=== PATIENT | female | born 1950 | race Caucasian/White ===

== ENCOUNTER → 2019-12-29 08:24 | Outpatient (REF) | payer OTHER, SELFPAY | LOC: ANHLAB 08:24 | PROVIDERS: Visit Provider Nurse Practitioner | DX: C44.722 Squamous cell carcinoma of skin of right lower limb, including hip (principal) | CPT/HCPCS: 88305 ==

== ENCOUNTER → 2020-02-01 10:53 | Outpatient (REF) | payer OTHER, SELFPAY | LOC: ANHLAB 10:53 | PROVIDERS: Visit Provider Nurse Practitioner | DX: C44.722 Squamous cell carcinoma of skin of right lower limb, including hip (principal) | CPT/HCPCS: 88305; 88331 ==

== ENCOUNTER 2021-09-04 14:29 | Outpatient (CLI) | payer OTHER, SELFPAY ==
--- NOTE | 2021-09-04 | ECHO_ITS ---
Patient Info Name: Becky Morales Age: 70 years : 1950 Gender: Female Ht: 63 in Wt: 118 lbs BSA: 1.54 m2 HR: 118 bpm BP: 123 / 84 mmHg Technical Quality: Poor Exam Date: 09/04/2021 2:58 PM Exam Location: [facility] Patient Status: Outpatient Admit Date: 09/04/2021 Staff Ordering Physician: Harpal Rand MD Help Desk Assistant: Alyse Sanchez RDCS Attending Provider: Harpal Rand MD Referring Physician: Keyona DURAN; Exam Type: CA echo doppler color flow Study Info Indications - ADENOID CYSTIC CARCINOMA C80.1 - Malignant (primary) neoplasm, unspecified Complete two-dimensional, color flow and Doppler transthoracic echocardiogram is performed. Reason for Poor Study: poor echocardiographic windows Summary 1. Complete two-dimensional, color flow and Doppler transthoracic echocardiogram is performed. 2. Technically suboptimal study due to poor sonographic images. 3. Left ventricular chamber dimension is normal. 4. Echogenic mass measuring 1.1 x 0.9 cm in LV apex is not well seen and could be artifact. Consider definity contrast injection to better delineate mass if any. 5. Left ventricular systolic function is hyperdynamic, estimated at >70%. 6. The left ventricular diastolic function is grade I diastolic dysfunction. 7. E/e' 7 is not elevated. 8. Severe pulmonary hypertension, estimated pulmonary arterial systolic pressure is 77 mmHg. 9. Pleural effusion with large fibrinous material suggesting chronicity. Left Ventricle E/e' 7 is not elevated. Technically suboptimal study due to poor sonographic images. Echogenic mass measuring 1.1 x 0.9 cm in LV apex is not well seen and could be artifact. Consider definity contrast injection to better delineate mass if any. Left ventricular chamber dimension is normal. Left ventricular systolic function is hyperdynamic, estimated at >70%. The left ventricular diastolic function is grade I diastolic dysfunction. Right Ventricle Right ventricular chamber dimension is not well visualized. Left Atria Left atrial chamber dimension is normal. Right Atria Right atrial chamber dimension is not well visualized. Aortic Valve The aortic valve is probable trileaflet. There is no aortic valve stenosis. There is no aortic valve regurgitation. Pulmonic Valve There is no pulmonic regurgitation. Mitral Valve There is no mitral valve stenosis. There is no mitral valve regurgitation. Tricuspid Valve There is no tricuspid valve regurgitation. Severe pulmonary hypertension, estimated pulmonary arterial systolic pressure is 77 mmHg. Pericardium/Pleural Pleural effusion with large fibrinous material suggesting chronicity. There is no pericardial effusion. Inferior Vena Cava Normal inferior vena cava with >50% collapse upon inspiration consistent with normal right atrial pressure, 5 mmHg. Aorta The aortic root size at the sinus of Valsalva is not well visualized. Left Ventricular Outflow Tract Name Value Normal LVOT 2D LVOT Diameter 1.8 cm LVOT Doppler LVOT Peak Gradient 6 mmHg LVOT Mean Gradient
== END 2021-09-04 14:30 | disposition home or self-care (01) ==
LOC: ANHCARD 14:33
PROVIDERS: PCP Internal Medicine; Visit Provider Internal Medicine Hematology & Oncology
DX: C80.1 Malignant (primary) neoplasm, unspecified (principal); J90 Pleural effusion, not elsewhere classified; I27.20 Pulmonary hypertension, unspecified
CPT/HCPCS: 93306

== ENCOUNTER 2021-09-05 15:47 | Inpatient (IN) | payer OTHER, SELFPAY ==
[2021-09-05] VITALS (31 sets, daily range): BP systolic 96–137; BP diastolic 64–106; PULSE 101–116; RESP 17–34; TEMP 36.3–36.9; O2SAT 48–100; BMI 25.0
--- NOTE | ~2021-09-05 | CT_ITS ---
EXAMINATION: CTA chest PE protocol DATE: 09/05/2021 23:31 INDICATION: Respiratory failure. TECHNIQUE: Computed tomography angiography (CTA) of the chest was performed with 100 mL Omnipaque-350 intravenous contrast timed to evaluate the pulmonary arteries. Coronal maximum intensity projection 3D-reconstructions were created by the technologist. Automated exposure control and iterative reconst ruction technique were employed. The dose-length product was 225.36 mGy-cm. COMPARISON: None. FINDINGS: There are numerous nodules and masses in the lungs. The largest mass in the right lung julius ures 3.9 x 3.2 cm. There is a large left pleural effusion with leftward shift of the mediastinum and inferior displacement of the diaphragm. There is bulky nodular pleural thickening in the left hemitho rax. The central pulmonary arteries are enlarged, consistent with pulmonary arterial hypertension. Th ere is right ventricular and right atrial enlargement of the heart. No pericardial effusion. There ar e pulmonary emboli in right middle lobe, right lower lobe, and right upper lobe. There is mild thorac ic spondylosis. IMPRESSION: 1. Acute pulmonary emboli in right lung. 2. Numerous nodules and masses in the lungs, consistent with metastatic disease. 3. Large left pleural effusion with bulky nodular pleural thickening, consistent with metastatic dise ase. 4. Right ventricular and right atrial enlargement of the heart. Reviewed, dictated and finalized at location B. IMPRESSION: 1. Acute pulmonary emboli in right lung. 2. Numerous nodules and masses in the lungs, consistent with metastatic disease . 3. Large left pleural effusion with bulky nodular pleural thickening, consisten t with metastatic disease. 4. Right ventricular and right atrial enlargement of the heart.
--- NOTE | ~2021-09-05 | XR_ITS ---
EXAMINATION: [id number] Exam Date/Time: 09/05/2021 17:37 CDT CLINICAL HISTORY: left pleural effusion Comparison: Same date at 4:02 PM. RESULT: Lines, tubes, and devices: None. Lungs and pleura: Interval decreased size of the left pleural effusion. No pneumothorax. Cardiomediastinal silhouette: Stable cardiomediastinal silhouette. Other: No acute osseous or upper abdominal finding. IMPRESSION: Interval decreased size of left pleural effusion, no other interval change. Reviewed, dictated and finalized at location K.
--- NOTE | ~2021-09-05 | US_ITS ---
EXAMINATION: US venous doppler [facility] DATE: 09/06/2021 11:53 INDICATION: Lower limb swelling. TECHNIQUE: Grayscale ultrasound images without and with compression and Doppler ultrasound images of the bilateral lower extremity veins were obtained. COMPARISON: None. FINDINGS: The visualized portions of right common femoral vein, profunda (deep) femoral vein, femoral vein, pop liteal vein, posterior tibial veins, and greater saphenous vein outflow are patent. There is thrombus in the right peroneal veins. The visualized portions of left common femoral vein, profunda femoral vein, femoral vein, popliteal v ein, peroneal veins, and greater saphenous vein outflow are patent. There is thrombus in the left pos terior tibial veins. IMPRESSION: 1. Acute deep vein thrombosis involving the right peroneal veins and left posterior tibial veins. Reviewed, dictated and finalized at location B. IMPRESSION: 1. Acute deep vein thrombosis involving the right peroneal veins and left post erior tibial veins.
--- NOTE | ~2021-09-05 | US_ITS ---
EXAMINATION: US thoracentesis DATE: 09/05/2021 17:47 INDICATION: pleural effusion TECHNIQUE: The procedure and its risks, benefits, and alternatives were discussed with the patient. P otential risks discussed included bleeding, infection, and pneumothorax. The patient understood the r isks and agreed to proceed. The skin was prepped and draped in sterile fashion. 1% lidocaine was used for local anesthesia. Under ultrasound guidance, a 5 Fr catheter with trochar was advanced into the left pleural effusion. Fluid was aspirated. The catheter was removed, and a dressing was applied. The re were no immediate complications. FINDINGS: Ultrasound images demonstrate a left pleural effusion and the catheter within the fluid. IMPRESSION: 1. Successful ultrasound-guided thoracentesis yielding 450 mL of opaque, red fluid. Reviewed, dictated and finalized at location A. IMPRESSION: 1. Successful ultrasound-guided thoracentesis yielding 450 mL of opaque, red f luid.
--- NOTE | ~2021-09-05 | XR_ITS ---
EXAMINATION: XR chest 1V portable DATE: 09/05/2021 16:07 INDICATION: Shortness of breath. TECHNIQUE: A single frontal view of the chest was obtained. COMPARISON: None. FINDINGS: There is a large left pleural effusion. There are multiple nodules and masses in the lungs. No pneumothorax. The heart size is obscured. There are changes of anterior fusion procedure in cervi elmo spine. IMPRESSION: 1. Nodules and masses in the lungs, likely metastatic disease. 2. Large left pleural effusion. Reviewed, dictated and finalized at location B.
--- NOTE | 2021-09-05 16:02 | ECG_ITS ---
Measurements Intervals [place] Rate: 114 P: 45 VA: 142 QRS: 39 QRSD: 79 T: -52 QT: 351 QTc: 484 Interpretive Statements SINUS TACHYCARDIA T WAVE ABNORMALITY IN ANT/INF LEADS- CONSIDER ISCHEMIA BASELINE ARTIFACT- I, II, III, AVR, AVL, AVF, V1, V4-V6 ABNORMAL ECG Electronically Signed On 09-05-2021 16:22:02 CDT by Varghese Farias D.O.
[2021-09-05 16:15] LABS: Basophils Absolute Auto 0.1 K/mm3 (0.0-0.1); Basophils Percent Auto 0.3 % (0.2-1.2); Hematocrit 44.6 % (37.0-47.0); Hemoglobin 13.1 g/dL (12.0-15.0); Immature Granulocyte Absolute 0.23 K/mm3 (0.00-0.031); Immature Granulocyte Percent A 1.3 % (0-0.5); Lymphocytes Absolute Auto 1.42 K/mm3 (0.9-3.2); Mean Corpuscular HGB Conc 29.4 g/dl (32-36); Mean Corpuscular Hemoglobin 30.8 pg (26-34); Mean Corpuscular Volume 104.7 fl (80-100); Mean Platelet Volume 9.4 fl (7.4-10.4); Monocytes Absolute Auto 1.4 K/mm3 (0.1-0.6); Neutrophils Absolute Auto 14.7 K/mm3 (1.3-6.7); Neutrophils Percent Auto 82.4 % (45.5-73.1); Nucleated Red Blood Cells Absolute Auto 0.4 K/mm3 (0.0-0.012); Nucleated Red Blood Cells Perc 2.1 % (0.0-0.2); Platelet Count Result 353 k/mm3 (150-375); Red Blood Count 4.26 M/mm3 (4.2-5.4); White Blood Count 17.9 K/mm3 (4.5-10.0)
[2021-09-05 16:23] LABS: Albumin Level 3.9 g/dL (3.5-5.1); Alkaline Phosphatase 164 U/L (38-126); Anion Gap 19 mmol/L (8-16); Aspartate Amino Transferase 75 U/L (14-36); Bilirubin,Total 0.6 mg/dL (0.2-1.3); Blood Urea Nitrogen 36 mg/dL (7-17); Calcium 9.7 mg/dL (8.4-10.2); Carbon Dioxide 21 mmol/L (22-30); Chloride 100 mmol/L (98-107); Estimated CRCL calculation 42 ml/min; Estimated Glomerular Filt Rate > 60; Glucose 188 mg/dL (65-110); Potassium 4.8 mmol/L (3.4-5.0); Sodium 140 mmol/L (137-145)
[2021-09-05 16:24] LABS: Alanine Aminotransferase 31 U/L (6-35)
--- NOTE | 2021-09-05 16:24 | ED.SOB ---
HPI - SOB/Dyspnea General Chief Complaint: Shortness of Breath/Dyspnea Stated Complaint: SOB, n/v Time Seen by Provider: 09/05/21 16:01 History of Present Illness HPI Narrative: Patient is a 70-year-old female who presents ER with shortness of breath. Worsening over the last 2 days but suddenly worsening prior to arrival here. Patient diaphoretic and hypoxic in triage at 48%.-Improving on nonrebreather mask. 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 She has not yet started radiation or chemotherapy. She sees Dr. Rand. Denies chest pain. No lower extremity swelling. Denies fevers or chills or sweats. No new cough. Related Data Home Medications Medication Instructions Recorded Confirmed hydrocodone 10 mg-acetaminophen 1 tablet PO PRN tablet 12/29/19 325 mg tablet diazepam 09/05/21 09/05/21 Allergies Allergy/AdvReac Type Severity Reaction Status Date / Time No Known Allergies Allergy Verified 09/05/21 16:11 Review of Systems Review of Systems: All systems reviewed & are unremarkable except as noted in HPI and below Constitutional: Constitutional: Denies chills, Reports fatigue, Denies fever(s) and Reports weakness ENT: Denies nasal congestion and Denies sore throat Cardiovascular: Cardiovascular: Denies chest pain, Denies rapid heart rate and Denies radiating jaw, neck or arm pain Respiratory: Respiratory: Denies cough, Reports dyspnea and Denies wheezing Gastrointestinal: Gastrointestinal: Denies abdominal pain, Denies nausea and Denies vomiting [facility] Past Medical History Medical History (Updated 09/05/21 @ 18:44 by Hilario Singh MD) 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 Head: Normocephalic, atraumatic. EYES: PERRL and EOMI. ENT: Dry mucous membranes. CHEST: Mixed lung sounds on the left side. Severe respiratory distress with accessory muscle usage. Clear lung sounds in the right side. HEART: Tachycardic and regular. Normal peripheral pulses. ABDOMEN: Soft, nontender, nondistended. EXTREMITIES: Normal range of motion. No edema. SKIN: Cool, moist, pale, no rash. NEURO: Alert and oriented x3. PSYCH: Normal mood and affect. Course Course Emergency Course: Patient family educate about the severity of the disease including the metastases. Patient has had 450 mL drained from her lung. There is concern for drawn long related to the tumors where she is not getting full expansion because there is no atelectasis. I have explained this to the family as well. Discussed that she has grim prognosis especially given how she is deteriorating without chemotherapy. Patient still full code at this time. Discussed elevated troponin. No chest pain at this time. We will continue to trend. May be related to strain. Additionally with elevated white blood cell count patient will be started on IV antibiotics. Possible pneumonia. Vital Signs Vital signs: Vital Signs Temperature 97.4 F L 09/05/21 15:57 Pulse Rate 115 H 09/05/21 15:57 Respiratory Rate 34 H 09/05/21 15:57 Blood Pressure 109/64 09/05/21 15:57 Pulse Oximetry 48 L 09/05/21 15:57 Temperature 97.4 F L 09/05/21 15:57 Pulse Rate 110 H 09/05/21 17:30 Respiratory Rate 27 H 09/05/21 17:30 Blood Pressure 137/86 09/05/21 17:30 Pulse Oximetry 97 09/05/21 17:30 MDM - SOB/Dyspnea Lab Data Result diagrams: 09/05/21 15:58 09/05/21 15:58 Labs:
[2021-09-05 16:26] LABS: INR 1.6; Prothrombin Time 18.7 Seconds (11.1-14.7)
[2021-09-05 16:27] LABS: NT Pro B Type Natriuretic Pept 15000 pg/mL (5-100)
[2021-09-05 16:39] LABS: Troponin I 0.117 ng/mL (0.000-0.034)
--- NOTE | 2021-09-05 17:26 | PCRCNOTE ---
ABG sample not obtained due to multiple failed attempts. Dr. Singh was notified.
--- NOTE | 2021-09-05 17:31 | PC.NURSE ---
Thoracentesis performed. 450mL removed. BHAVYA Singh at bedside updating pt and family.
[2021-09-05] MEDS: MORPHINE SULFATE (*CRX) 4 MG/ML INJ IV PUSH ×2 (18:01→22:37)
[2021-09-05 19:52] LABS: Troponin I 0.139 ng/mL (0.000-0.034)
--- NOTE | 2021-09-05 20:01 | ADMGEN ---
This patient, Becky Morales, was admitted to IMU Room 202-01. Patient/family oriented to hospital policies and general routines including ID bracelet, bed and alarms, visiting hours, pain management, procedures, bathroom and other care routines, personal items, smoking policy, room service/diet, and visiting hours. Information on how to activate the Rapid Response Team has been discussed. Patient/Family are encouraged to report perceived risks to care and to ask questions if they do not understand what they are told or what they should do.
--- NOTE | 2021-09-05 21:37 | PM.IMHP ---
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 The patient was brought in from home via private vehicle. She was in marked respiratory distress on arrival to the ER with oxygen saturations of 40% on room air. She is placed on 15 L non-rebreather with improvement oxygen saturations to 90%. The patient had been having increasing shortness of breath for the last 2 days but suddenly worsen prior to coming to the ER. She was found to be diaphoretic on arrival. 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 She reported that her medical saga began back in June when she fell and had a pathologic compression fracture. She had noted an area of swelling right jaw that had been present for approximately 3 months prior to that. She thought that the swelling in her jaw was due to a tooth infection that had been treated previously. However, she had continued to be fatigued in have decreased appetite. She began having issues with shortness of breath and was found to have pleural effusions. She had a thoracentesis approximately 3 weeks ago and imaging performed which demonstrated metastatic disease. Initially they did not know where the origin of the cancer was at and chills she pointed out the swelling under her jaw. She had resection of the salivary gland which demonstrated a cancer type. She went to see Dr. Scott adams as outpatient and had outpatient echocardiogram 09/04/2021. The echocardiogram demonstrated technically difficult study with poor images. She had an echogenic mass in the left ventricular apex not well seen, left ventricular systolic function greater than 70, grade 1 diastolic dysfunction, and severe pulmonary hypertension with RVSP of 71. She had a pleural effusion with large fibrinous material suggesting chronic in nature. She denied having any fevers or chills. She has not been having any nausea or vomiting. She has been having poor appetite. A she denies any chest pain. She has not noticed any extremity edema or calf pain. She reports that she was healthy prior to this diagnosis. The patient does report orthopnea and paroxysmal nocturnal dyspnea. In the ER the patient was placed on BiPAP. She was taken by IR for ultrasound-guided thoracentesis. They obtained 450 mL of opaque red fluid. Patient reports chronic dry mouth and is irritated was heavily BiPAP in place. Patient was weaned to 8 L nasal cannula. But given her elevated RVSP and evidence of severe pulmonary hypertension on his suspicious for pulmonary embolism and sent the patient for CTA of the chest (after much convincing the patient agreed.) When the patient arrived back from CT she was satting 77% on 8 L nasal cannula. She did not want to return to BiPAP but nursing staff was able to convince her that it was for her best interest. The patient reports pain from her recent vertebral compression fracture. Review of Systems Review of Systems: 12 systems were reviewed with pertinent positives and negatives per HPI. Except as documented in the HPI, all other systems were reviewed and are negative. [facility] Past Medical History Medical History (Updated 09/06/21 @ 05:48 by Janeen العراقي DO) Adenoid cystic carcinoma History of actinic keratosis History of basal cell carcinoma (BCC) of skin Squamous cell carcinoma of right lower leg Vertebral compression fracture Surgical History Surgical History History of back surgery 1st surgery - 2001 Family History Family History (Updated 09/05/21 @ 21:41 by Janeen العراقي DO) Mother , 88 years old Breast cancer Sibling Breast cancer Sister COPD (chronic obstructive pulmonary disease)
[2021-09-05 22:25] LABS: Troponin I 0.118 ng/mL (0.000-0.034)
[2021-09-06] VITALS (23 sets, daily range): BP systolic 98–144; BP diastolic 61–77; PULSE 88–116; RESP 16–32; TEMP 36.5–37.7; O2SAT 92–100; BMI 25.0
--- NOTE | 2021-09-06 | ECHO_ITS ---
Patient Info Name: Becky Morales Age: 70 years : 1950 Gender: Female Ht: 63 in Wt: 141 lbs BSA: 1.70 m2 HR: 113 bpm BP: 132 / 65 mmHg Technical Quality: Good Exam Date: 09/06/2021 11:33 AM Exam Location: [facility] Pulmonary Exam Room: [facility] Patient Status: Inpatient Admit Date: 09/06/2021 Staff Ordering Physician: Candido Castano MD Assistant Track And Field Coach: Trista Fuller RDCS Attending Provider: Ray Mason M.A., MD Exam Type: CA echo limited w contrast Study Info Indications - eval for cardiac mass Limited two-dimensional transthoracic echocardiogram is performed with contrast. Contrast/Agitated Saline Contrast/Ag. Saline: Definity Amount: --- ml Administered By: Trista Fuller [facility] Existing IV Access: Yes IV Access Condition: patent with no signs of infiltration Summary 1. Limited echocardiogram to assess for apical mass with definity contrast. 2. Definity contrast administered improved wall motion interpretation. 3. No mass is seen in LV apex which suggests mass seen on complete thoracic echocardiogram was an artifact. 4. Left ventricular chamber dimension is normal. 5. Left ventricular systolic function is hyperdynamic, estimated at >70%. 6. The left ventricular diastolic function is indeterminate. Left Ventricle Definity contrast administered improved wall motion interpretation. Limited echocardiogram to assess for apical mass with definity contrast. No mass is seen in LV apex which suggests mass seen on complete thoracic echocardiogram was an artifact. Left ventricular chamber dimension is normal. Left ventricular systolic function is hyperdynamic, estimated at >70%. The left ventricular diastolic function is indeterminate. Report Signatures
[2021-09-06] MEDS: HEPARIN SOD/D5W 100 UNITS/ML 25,000 UNITS/250 ML BAG 10 UNITS IV CONT (01:27)
[2021-09-06] MEDS: HEPARIN SODIUM 5,000 UNITS/ML VIAL 5000 UNITS IV PUSH (01:28)
[2021-09-06] MEDS: MORPHINE SULFATE (*CRX) 4 MG/ML INJ IV PUSH ×4 (04:44→21:47)
[2021-09-06 07:43] LABS: Hematocrit 37.6 % (37.0-47.0); Hemoglobin 11.6 g/dL (12.0-15.0); Mean Corpuscular HGB Conc 30.9 g/dl (32-36); Mean Corpuscular Hemoglobin 30.8 pg (26-34); Mean Corpuscular Volume 99.7 fl (80-100); Mean Platelet Volume 9.5 fl (7.4-10.4); Platelet Count Result 236 k/mm3 (150-375); Red Blood Count 3.77 M/mm3 (4.2-5.4); White Blood Count 13.9 K/mm3 (4.5-10.0)
[2021-09-06 07:54] LABS: Anion Gap 8 mmol/L (8-16); Blood Urea Nitrogen 36 mg/dL (7-17); Carbon Dioxide 26 mmol/L (22-30); Chloride 101 mmol/L (98-107); Estimated CRCL calculation 60 ml/min; Estimated Glomerular Filt Rate > 60; Glucose 117 mg/dL (65-110); Partial Thromboplastin Time 82.1 SECONDS (22.3-36.8); Potassium 4.4 mmol/L (3.4-5.0); Sodium 135 mmol/L (137-145)
--- NOTE | 2021-09-06 10:05 | PM.IMPN ---
Progress Note: A&P Assessment and Plan (1) Acute respiratory failure: Qualifiers: Respiratory failure complication: hypoxia Qualified Code(s): J96.01 - Acute respiratory failure with hypoxia Code(s): J96.00 - Acute respiratory failure, unspecified whether with hypoxia or hypercapnia Status: Acute Assessment and Plan: Patient presents with shortness of breath and was found to be in acute respiratory failure requiring BiPAP. Imaging shows innumerable number of metastatic lesions throughout both lungs. She also has a large loculated left pleural effusion status post paracentesis of 750 mL. No ABG was obtained. She has found also to have a PE which is contributing to her acute respiratory failure. Consider also infectious etiology and antibiotics have been started. Will check ABG. If no hypercapnia, will trial her off of BiPAP. ABG - 7.478/38/72.5 on bipap. Trial off of bipap as toerlated (2) Pleural effusion: Code(s): J90 - Pleural effusion, not elsewhere classified Status: Acute Assessment and Plan: Chest x-ray shows multiple lung nodules and masses bilaterally with large left pleural effusion. She underwent thoracentesis with removal of 750 mL opaque reddish fluid. Most likely malignant effusion but cannot rule out parapneumonic or empyema. No labs or cultures sent. Lab has been called to try to add on a culture. CT scan continues to show large left pleural effusion but also with bulky nodular pleural thickening. Will trial her off BiPAP but if unsuccessful, she may need a repeat thoracentesis. Continue IV antibiotics. (3) Pulmonary embolism: Code(s): I26.99 - Other pulmonary embolism without acute cor pulmonale Status: Acute Assessment and Plan: CTA shows acute pulmonary emboli into the right lung. She is hypercoagulable from her cancer. She is on heparin drip at this time. Check LE doppler. (4) Elevated troponin: Code(s): R77.8 - Other specified abnormalities of plasma proteins Status: Acute Assessment and Plan: Troponin climbed to 0.14. EKG reviewed showing sinus tachycardia and T-wave abnormalities in anterior and inferior leads; consider ischemia. Some of these EKG findings may be related to her severe pulmonary hypertension and recently diagnosed PE. Echo 09/04/2021 shows EF greater than 70%, grade 1 diastolic dysfunction, possible echogenic mass measuring 1.1 cm in the LV apex and severe pulmonary hypertension. If she has a left ventricular thrombus, she is at risk for acute coronary syndrome from embolic source. Suspect elevated troponins related to acute respiratory failure and PE and less likely acute coronary syndrome. Repeat echo with contrast to further delineate mass. (5) Severe pulmonary hypertension: Code(s): I27.20 - Pulmonary hypertension, unspecified Status: Acute Assessment and Plan: Echocardiogram shows severe pulmonary hypertension with the PASP of 77 mmHg. Etiology felt related to multiple pulmonary nodules and masses. Patient also with pulmonary embolism contributing to this as well. She may have undiagnosed sleep apnea has no other etiology. As above. Will trial her off BiPAP today. Continue BiPAP at night. PE treatment as mentioned above. (6) Adenoid cystic carcinoma: Code(s): C80.1 - Malignant (primary) neoplasm, unspecified Status: Acute Assessment and Plan: Patient with adenoid cystic carcinoma with presumed metastasis to the lung. She has not received treatment yet. Oncology has been consulted. (7) Mass of left cardiac ventricle: Code(s): I51.89 - Other ill-defined heart diseases Status: Acute Assessment and Plan: As above. Repeat echo with contrast to further delineate mass. (8) Metastasis to lung: Code(s): C78.00 - Secondary malignant neoplasm of unspecified lung Status: Acute Assessment and Plan: As
[2021-09-06 10:32] LABS: Alveolar/Arterial O2 Gradient 168.9 mmHg; Fractional Inspired Oxygen 40 %; HCO3 ABG 27.6 mEq/l (22.0-26.0); Modified Allen's Test Pass; Oxygen Content ABG 16.8 %vol (16.0-22.0); Oxygen Saturation ABG 95.6 % (95.0-100.0); PCO2 ABG 38.1 mmHg (35.0-45.0); PO2 ABG 72.5 mmHg (80.0-100.0); PO2 FiO2 Ratio Arterial Blood 1.81 %; Site Drawn LEFT RADIAL; Total Hemoglobin 12.8 g/dL (12.0-18.0); pH ABG 7.478 (7.350-7.450)
[2021-09-06 10:33] LABS: Device NON-INVASIVE VENT; Non-Invasive Expiratory Pressure 6 CMH2O; Non-Invasive Inspiratory Pressure 12 CMH2O; Non-Invasive Vent Rate 16 /MIN
--- NOTE | 2021-09-06 10:41 | PCRCNOTE ---
Doc ordered ABG for pt. Depending on results doctor wanted O2 delivery device changed. ABG was good so pt was changed from BIPAP to High flow nasal cannula at 6 lpm. Pt sating good but want to wait to make sure transition is okay. Will titrate pt after reassessment of O2 levels on next check. Pt states feeling good and glad to be off the bipap.
--- NOTE | 2021-09-06 10:57 | PC.NURSE ---
Dr. Castano had ordered labs on pleural fluid that was obtained from patient's thoracentesis yesterday (09/05). Informed Dr. Castano that lab was unable to find pleural fluid on this patient. Call placed to Ultrasound, according to Margot in ultrasound, If no labs were ordered on the fluid, the fluid goes into a bin. Once the fluid is in the bin it is only good for one hour. So it would no longer be viable to use at this time. Informed Dr. Castano of information obtained.
[2021-09-06] MEDS: PERFLUTREN LIPID MICROSPHERES 1.5 ML VIAL DILUTED TO 10 ML TOTAL VOLUME IV PUSH (11:27)
--- NOTE | 2021-09-06 11:28 | IVDEFINITY ---
Prior to administration of IV Definity the patient was educated on the risks and benefits of the imaging enhancing agent including potential adverse side effects. The patient verbalized understanding. Allergies were verified. No exclusion criteria were identified and at least one of the following inclusion criteria were met: 1) physician request, 2) patient technically difficult to image (per the [place] [employer] guidelines of two or more segments not discernable within the apical view), or 3) questionable left ventricular function. ?
[2021-09-06 14:25] LABS: Partial Thromboplastin Time 86.9 SECONDS (22.3-36.8)
--- NOTE | 2021-09-06 14:32 | PCNSR ---
On 09/06/21, the student, Anjum Sullivan, provided care and completed [facility] documentation on this patient. I have reviewed the student's documentation and agree with the findings.
--- NOTE | 2021-09-06 19:08 | PDONCCN ---
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 Patient was seen in the office just about a week ago and plan was to start chemotherapy. She had echocardiogram recently in preparation for chemotherapy. She came into the hospital with increasing shortness of breath. Upon arrival to the ER her oxygen saturation was 40% on room air. CTA chest showed acute pulmonary embolism in the right lung with numerous new lung nodules and large left-sided pleural effusion. Doppler study showed acute DVT involving the right peroneal and left posterior tibial vein. Patient had paracentesis of the left-sided pleural effusion done with removal of 4 in 50 mL of red colored fluid. Patient remains quite short of breath and having some sweating. She denies any fevers and chills. She has poor taste and has not been eating. Review of Systems - Review of Systems All systems reviewed & are unremarkable except as noted in HPI and bel - Neurologic Reports weakness PMFSH Medical History: Medical History (Last Updated 09/06/21 @ 05:48 by Janeen العراقي DO) Adenoid cystic carcinoma History of actinic keratosis History of basal cell carcinoma (BCC) of skin Squamous cell carcinoma of right lower leg Vertebral compression fracture Surgical History: Surgical History (Last Reviewed 09/05/21 @ 21:40 by Janeen العراقي DO) History of back surgery 1st surgery - 2001 Family History: Family History (Last Updated 09/05/21 @ 21:41 by Janeen العراقي DO) Mother , 88 years old Breast cancer Sibling Breast cancer Sister COPD (chronic obstructive pulmonary disease) Brother Father Unknown family medical history - Social History Social History: Social History (Last Updated 09/06/21 @ 05:38 by Janeen العراقي DO) Alcohol Use: Alcohol intake: current Alcohol use details: She rarely drinks alcohol. Substance Use: Substance use: never Others: Spiritual care concerns: No Oppucation/Education: Occupation/Education: retired Smoking Status: Smoking status: Never smoker Meds Home Medications Medication Instructions Recorded Confirmed Type hydrocodone 10 mg-acetaminophen 1 tablet PO Q6H PRN tablet 12/29/19 09/05/21 History 325 mg tablet diazepam 5 mg PO Q8H PRN 09/05/21 09/05/21 History Allergies Allergy/AdvReac Type Severity Reaction Status Date / Time No Known Allergies Allergy Verified 09/05/21 16:11 Results - Labs CBC & Chem 7: 09/06/21 07:38 09/06/21 07:38 Labs: Short CBC 09/06/21 Range/Units 07:38 WBC 13.9 H (4.5-10.0) K/mm3 Hgb 11.6 L (12.0-15.0) g/dL Hct 37.6 (37.0-47.0) % Plt Count 236 (150-375) k/mm3 BMP 09/06/21 07:38 Sodium 135 L Potassium 4.4 Chloride 101 Carbon Dioxide 26 BUN 36 H Creatinine 0.60 L Glucose 117 H Calcium 9.0 Cardiac Enzymes 09/05/21 09/05/21 Range/Units 19:19 21:45 Troponin I 0.139 H* 0.118 H* (0.000-0.034) ng/mL Assessment and Plan - Additional Plan 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 Patient was seen in the office just about a week ago and plan was to start chemotherapy treatment. She came into the hospital with increasing shortness of breath. CTA chest showed PE involving the right lung. There was large left-sided pleural effusion and paracentesis was performed. She also has DVT involving right peroneal and left posterior tibial vein. Patient was started on heparin. I had a long discussion with patient as well as
[2021-09-07] VITALS (10 sets, daily range): BP systolic 110–148; BP diastolic 70–84; PULSE 100–115; RESP 18–34; TEMP 36.4–37.6; O2SAT 88–97
[2021-09-07] MEDS: HEPARIN SOD/D5W 100 UNITS/ML 25,000 UNITS/250 ML BAG 10 UNITS IV CONT (00:59)
[2021-09-07] MEDS: MORPHINE SULFATE (*CRX) 4 MG/ML INJ IV PUSH ×5 (01:25→16:07)
[2021-09-07 05:09] LABS: Basophils Percent Auto 0.2 % (0.2-1.2); Eosinophils Percent Auto 0.1 % (0-4.4); Hematocrit 38.4 % (37.0-47.0); Immature Granulocyte Percent A 0.7 % (0-0.5); Lymphocytes Absolute Auto 1.45 K/mm3 (0.9-3.2); Lymphocytes Percent Auto 10.2 % (18.3-44.2); Mean Corpuscular HGB Conc 31.3 g/dl (32-36); Mean Corpuscular Hemoglobin 30.5 pg (26-34); Mean Corpuscular Volume 97.7 fl (80-100); Mean Platelet Volume 9.9 fl (7.4-10.4); Monocytes Absolute Auto 1.3 K/mm3 (0.1-0.6); Monocytes Percent Auto 9.3 % (2.6-8.5); Neutrophils Absolute Auto 11.4 K/mm3 (1.3-6.7); Neutrophils Percent Auto 79.5 % (45.5-73.1); Nucleated Red Blood Cells Absolute Auto 0.1 K/mm3 (0.0-0.012); Nucleated Red Blood Cells Perc 0.6 % (0.0-0.2); Platelet Count Result 241 k/mm3 (150-375); Red Blood Count 3.93 M/mm3 (4.2-5.4); Red Cell Distribution Width 13.8 % (11.5-14.5); White Blood Count 14.3 K/mm3 (4.5-10.0)
[2021-09-07 05:22] LABS: Partial Thromboplastin Time 80.6 SECONDS (22.3-36.8)
[2021-09-07 05:35] LABS: Alanine Aminotransferase 19 U/L (6-35); Albumin Level 3.2 g/dL (3.5-5.1); Alkaline Phosphatase 138 U/L (38-126); Anion Gap 7 mmol/L (8-16); Aspartate Amino Transferase 57 U/L (14-36); Bilirubin,Total 0.5 mg/dL (0.2-1.3); Blood Urea Nitrogen 17 mg/dL (7-17); Calcium 8.8 mg/dL (8.4-10.2); Carbon Dioxide 28 mmol/L (22-30); Chloride 97 mmol/L (98-107); Estimated CRCL calculation 87 ml/min; Estimated Glomerular Filt Rate > 60; Glucose 108 mg/dL (65-110); Magnesium 2.2 mg/dL (1.6-2.3); Phosphorus 2.9 mg/dL (2.5-4.5); Potassium 3.9 mmol/L (3.4-5.0); Sodium 132 mmol/L (137-145)
--- NOTE | 2021-09-07 13:03 | PM.IMPN ---
Progress Note: A&P Assessment and Plan (1) Acute respiratory failure: Qualifiers: Respiratory failure complication: hypoxia Qualified Code(s): J96.01 - Acute respiratory failure with hypoxia Code(s): J96.00 - Acute respiratory failure, unspecified whether with hypoxia or hypercapnia Status: Acute (2) Pleural effusion: Code(s): J90 - Pleural effusion, not elsewhere classified Status: Acute (3) Pulmonary embolism: Code(s): I26.99 - Other pulmonary embolism without acute cor pulmonale Status: Acute (4) Elevated troponin: Code(s): R77.8 - Other specified abnormalities of plasma proteins Status: Acute (5) Severe pulmonary hypertension: Code(s): I27.20 - Pulmonary hypertension, unspecified Status: Acute (6) Adenoid cystic carcinoma: Code(s): C80.1 - Malignant (primary) neoplasm, unspecified Status: Acute (7) Mass of left cardiac ventricle: Code(s): I51.89 - Other ill-defined heart diseases Status: Acute (8) Metastasis to lung: Code(s): C78.00 - Secondary malignant neoplasm of unspecified lung Status: Acute Additional Plan Spoke with her and family in the room. She did not recall talking with oncologist. We talked about how we can still treat but recommended she change her code status to DNR. She voices understanding about the severity of her condition. She wishes to change her code status to DNR. Family in the room agree with this decision as well. RNs to verify. I also spoke to the patient and family about repeat thoracentesis but was not sure if this would even help. Offered comfort measures and the patient and family wanted to talk to someone from Hospice. All questions answered. tax collection coordinator was consulted. She will need inpatient hospice. Subjective Date/time seen: 09/07/21 13:03 Interval history: 70yo female with metastatic adenoid cystic carcinoma yet to be treated and known left ventricular mass by echo here for shortness of breath. Patient did not wear the BiPAP overnight. She had a restless night. She was more SOB this morning and had to go back on the BiPAP. Exam Narrative: AF 98.4 110/78 108 19 97% bipap Gen - thin female in NARD who appears comfortable on bipap Chest - decreased BS in the left mid and lower zavala. Right base inspiratory crackles. CV - RRR S1/S2 Abd - Soft, NT/ND, Positive BS Ext - No pedal edema. Psych - depressed Skin - cool and dry Objective Data Vital Signs Vital Signs: Vital Signs - 24 hr 09/06/21 14:00 09/06/21 14:02 09/06/21 14:13 Temperature Pulse Rate 104 H Respiratory Rate Blood Pressure Pulse Oximetry 96 97 09/06/21 16:00 09/06/21 16:50 09/06/21 18:00 Temperature 99.8 F H Pulse Rate 110 H 116 H 110 H Respiratory Rate 28 H Blood Pressure 113/73 Pulse Oximetry 97 92 09/06/21 20:00 09/06/21 20:23 09/06/21 22:00 Temperature 99.8 F H Pulse Rate 110 H 100 Respiratory Rate 32 H Blood Pressure 144/77 H Pulse Oximetry 92 92 09/07/21 00:00 09/07/21 02:00 09/07/21 04:00 Temperature 98.3 F 97.5 F L Pulse Rate 104 H 102 H 108 H Respiratory Rate 32 H 34 H Blood Pressure 122/70 148/73 H Pulse Oximetry 94 92 09/07/21 06:00 09/07/21 08:00 09/07/21 08:13 Temperature 98.3 F Pulse Rate 112 H 111 H Respiratory Rate 18 Blood Pressure 143/84 H Pulse Oximetry 94 94 09/07/21 10:00 09/07/21 12:00 Temperature 98.4 F Pulse Rate 109 H 108 H Respiratory Rate 19 Blood Pressure 110/78 Pulse Oximetry 88 L 97 Intake/Output Intake/Output: Intake & Output 09/04/21 09/05/21 09/06/21 09/07/21 23:59 23:59 23:59 23:59 Intake Total 300 1310 840 Output Total 450 600 200 Balance -150 710 640 Meds/Results Medications: Active Medications Generic Name Dose Route Start Last Admin Trade Name Freq PRN Reason Stop Dose Admin Hydrocodone Bitart/Acetaminophen 1 tab 09/05/21 21:42 Hydroco
--- NOTE | 2021-09-07 16:16 | PCCCNOTE ---
On 09/07/21, the student, [Hailey Lugo], provided care and completed [facility] documentation on this patient. I have reviewed the student's documentation and agree with the findings.
--- NOTE | 2021-09-07 17:13 | PM.DS ---
DS: Admitting Diagnosis Discharge Date 09/07/21 Admitting Diagnosis Respiratory failure DS: Discharge Diagnosis Discharge Diagnosis (1) Acute respiratory failure: Qualifiers: Respiratory failure complication: hypoxia Qualified Code(s): J96.01 - Acute respiratory failure with hypoxia Code(s): J96.00 - Acute respiratory failure, unspecified whether with hypoxia or hypercapnia Status: Acute (2) Pleural effusion: Code(s): J90 - Pleural effusion, not elsewhere classified Status: Acute (3) Pulmonary embolism: Code(s): I26.99 - Other pulmonary embolism without acute cor pulmonale Status: Acute (4) Elevated troponin: Code(s): R77.8 - Other specified abnormalities of plasma proteins Status: Acute (5) Severe pulmonary hypertension: Code(s): I27.20 - Pulmonary hypertension, unspecified Status: Acute (6) Adenoid cystic carcinoma: Code(s): C80.1 - Malignant (primary) neoplasm, unspecified Status: Acute (7) Mass of left cardiac ventricle: Code(s): I51.89 - Other ill-defined heart diseases Status: Acute (8) Metastasis to lung: Code(s): C78.00 - Secondary malignant neoplasm of unspecified lung Status: Acute DS: Summary Hospital Course Reason for hospitalization: 70yo female with metastatic adenoid cystic carcinoma yet to be treated and known left ventricular mass by echo here for shortness of breath. Please see H&P for details Hospital Course: Patient presented with shortness of breath and was found to be in acute respiratory failure requiring BiPAP. Imaging shows innumerable number of metastatic lesions throughout both lungs. She also had a large loculated left pleural effusion and underwent thoracentesis of 750 mL. CTA was performed after the thoracentesis. She has found also to have a PE which is contributing to her acute respiratory failure. We also considered infectious etiology and antibiotics were started. Her condition did not change significantly and it was not felt that repeat thoracentesis would have been helpful. Patient spoke with oncologist who felt DNR status would be appropriate and he spoke to the patinet and family about hospice. Code status was changed. We provided information about hospice. Patient and family were given time to discuss among themselves. All questions were answered. The patient and family decided to move to hospice care. She was transferred to inpatient hospice on 09/07/21. Status at Discharge Cognitive/behavioral status at discharge: critical Time Spent with Patient Time attestation: Total time spent providing and/or coordinating discharge services: 38 minutes Time spent: Greater than 30 minutes Exam Narrative: AF 98.4 110/78 108 19 97% bipap Gen - thin female in NARD who appears comfortable on bipap Chest - decreased BS in the left mid and lower zavala. Right base inspiratory crackles. CV - RRR S1/S2 Abd - Soft, NT/ND, Positive BS Ext - No pedal edema. Psych - depressed Skin - cool and dry DS: Data Data Completed and Pending Pending studies at discharge: Pending at discharge 09/06/21 10:41 Cytology [PTH] Routine Labs on day of discharge: Labs from last 24 hours 09/07/21 09/07/21 09/07/21 04:32 04:32 04:32 WBC 14.3 H RBC 3.93 L Hgb 12.0 Hct 38.4 MCV 97.7 MCH 30.5 MCHC 31.3 L RDW 13.8 Plt Count 241 MPV 9.9 Immature Gran % (Auto) 0.7 H Neut % (Auto) 79.5 H Lymph % (Auto) 10.2 L [place] % (Auto) 9.3 H Eos % (Auto) 0.1 Baso % (Auto) 0.2 Lymph # (Auto) 1.45 [place] # (Auto) 1.3 H Eos # (Auto) 0.0 Baso # (Auto) 0.0 Abs Immat Gran (auto) 0.10 H Absolute Neuts (auto) 11.4 H Absolute Nucleated RBC 0.1 H Nucleated RBC % 0.6 H APTT 80.6 H Sodium 132 L Potassium 3.9 Chloride 97 L Carbon Dioxide 28 Anion Gap 7 L BUN 17 D Creatinine 0.40 L Estim Crea
[2021-09-09 00:47] LABS: Pneumococcal Antigen Urine Not Detected (Not Detected)
[2021-09-09 20:18] LABS: Legionella pneumophila Ag Ur Not Detected (Not Detected)
== END 2021-09-07 17:33 | disposition hospice, inpatient (51) | DRG 189 ==
LOC: ANHED 18:44 → ANHIMU 18:57
PROVIDERS: Internal Medicine; Admitting Provider Internal Medicine; Emergency Provider Emergency Medicine; PCP Internal Medicine; Visit Provider Internal Medicine
DX: J96.01 Acute respiratory failure with hypoxia (principal); I26.99 Other pulmonary embolism without acute cor pulmonale; J90 Pleural effusion, not elsewhere classified; C78.00 Secondary malignant neoplasm of unspecified lung; R77.8 Other specified abnormalities of plasma proteins; I27.20 Pulmonary hypertension, unspecified; C80.1 Malignant (primary) neoplasm, unspecified; Z85.828 Personal history of other malignant neoplasm of skin; Z51.5 Encounter for palliative care; Z66 Do not resuscitate; Z80.3 Family history of malignant neoplasm of breast; Z82.5 Family history of asthma and other chronic lower respiratory diseases; Z79.899 Other long term (current) drug therapy; I51.89 Other ill-defined heart diseases
CPT/HCPCS: 32555; 36415; 36600; 71045; 71275; 80048; 80053; 82805; 83735; 83880; 84100; 84484; 85025; 85027; 85610; 85730; 87040; 87449; 87899; 93005; 93306; 93308; 93970; 94002; 94003; 96365; 96366; 96367; 96375; 96376; 99285; C8924; G0378; J0456; J0696; J1644; J2270; J3370; Q9957; Q9967

== ENCOUNTER 2021-09-07 17:25 | HOS | payer OTHER, MEDICARE, SELFPAY ==
[2021-09-07 18:35] VITALS: BMI 25.0
[2021-09-07] MEDS: MORPHINE SULFATE (*CRX) 4 MG/ML INJ IV PUSH (19:58)
[2021-09-07] MEDS: LORazepam INJ (*CRX) 2 MG/ML VIAL 1 MG IV PUSH (19:59)
[2021-09-07 20:00] VITALS: BP 88/75; PULSE 99; RESP 36; TEMP 37; O2SAT 94
[2021-09-07] MEDS: MORPHINE SULFATE INJ (*CRX) 50 MG in SODIUM CHLORIDE 0.9% IV 95 ML IV CONT (20:13)
--- NOTE | 2021-09-07 21:51 | PC.NURSE ---
This patient, Becky Morales, was transferred to [facility] on 09/07/21 at 2151. Personal belongings sent with patient. Report given to [Celia arzate ]. Appropriate documentation sent with patient.
--- NOTE | 2021-09-07 22:19 | PC.NURSE ---
09/07/212152 pt arrived to floor from imu to 3109. pt made comfortable in bed. morphine drip infusing w/o difficulty. pt's daughter at bedside. pt's daughter does not want any vitals done on pt. o2@5l/nc. hob elevated. reeves catheter patent. call signal light in reach. will continue to monitor.
--- NOTE | 2021-09-08 02:22 | PC.NURSE ---
09/08/21 0222 pt's daughter at bedside refusing turn and repositioning of pt q2h and prn. pt's daughter requesting neb treatments at this time for pt.
[2021-09-08] MEDS: MORPHINE SULFATE (*CRX) 4 MG/ML INJ IV PUSH ×3 (02:36→20:05)
--- NOTE | 2021-09-08 02:43 | PC.NURSE ---
09/08/21 0236 pt's daughter request pt recieve prn morphine at this time.
[2021-09-08] MEDS: IPRATROPIUM BR 0.02% INH SOLN 0.5 MG/2.5 ML VIAL INHALATION (02:50)
[2021-09-08] MEDS: ALBUTEROL SULFATE NEB 2.5 MG/3 ML INH 1.25 MG INHALATION (02:50)
[2021-09-08 08:00] VITALS: PULSE 99; RESP 36; O2SAT 94
--- NOTE | 2021-09-08 17:40 | PM.IMHP ---
H&P: HPI History of Present Illness Date/Time: 09/08/21 17:40 Chief Complaint: Uncontrolled dyspnea and discomfort Narrative: This unfortunate 70-year-old female was recently diagnosed with salivary gland cancer. She was admitted to acute care September 05 and found to have pulmonary emboli as well as multiple pulmonary metastases. Because of her poor functional status uncontrolled pain and dyspnea and poor overall prognosis due to her rapidly spreading cancer her daughter who is her power of compliance attorney opted for comfort care only. Since initiation of morphine drip at admission last evening the patient has experienced minimal pain. Review of Systems Review of Systems: ROS unobtainable: Yes unobtainable due to medical condition PMFSH Past Medical History Medical History Adenoid cystic carcinoma History of actinic keratosis History of basal cell carcinoma (BCC) of skin Squamous cell carcinoma of right lower leg Vertebral compression fracture Surgical History Surgical History History of back surgery 1st surgery - 2001 Family History Family History Mother , 88 years old Breast cancer Sibling Breast cancer Sister COPD (chronic obstructive pulmonary disease) Brother Father Unknown family medical history Social History Social History (Updated 09/08/21 @ 17:40 by Khang Last MD) Social History: She lives at home with her significant other of 33 years. She has 1 daughter. Code status: DNR Smoking status: Never smoker Alcohol intake: current Alcohol use details: She rarely drinks alcohol. Substance use: never Additional occupation/education comments: Retail sales Spiritual care concerns: Yes Meds Home Medications and Allergies Home Medications Medication Instructions Recorded Confirmed Type No Home Medications 09/07/21 09/07/21 History Allergies Allergy/AdvReac Type Severity Reaction Status Date / Time No Known Allergies Allergy Verified 09/05/21 16:11 Vital Signs Vital Signs - 24 hr 09/07/21 20:00 09/08/21 08:00 Temperature 98.6 F Pulse Rate 99 99 Respiratory Rate 36 H 36 H Blood Pressure 88/75 L Pulse Oximetry 94 94 Exam Narrative: Elderly female lying in hospital bed in no acute distress Neck without JVD Chest bilateral coarse breath sounds and crackles in lower lobes Heart regular rate Abdomen soft with hypoactive bowel sounds nontender Extremities without edema or cyanosis Musculoskeletal no gross deformity to visual inspection Neurologic cranial nerves symmetric to visual inspection Psychiatric alert oriented to person Assessment and Plan Assessment and plan (1) Palliative care by specialist: Code(s): Z51.5 - Encounter for palliative care Status: Acute Assessment and Plan: Meet inpatient hospice criteria due to requiring continuous opioid infusion for control of dyspnea and discomfort Remainder of palliative regimen as ordered Discussed with daughter and significant other at bedside 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: Qualifiers: Laterality: unspecified laterality Qualified Code(s): C78.00 - Secondary malignant neoplasm of unspecified lung Code(s): C78.00 - Secondary malignant neoplasm of unspecified lung Status: Acute (4) Pulmonary embolism: Qualifiers: Acute cor pulmonale presence: unspecified Chronicity: unspecified Pulmonary embolism type: unspecified Qualified Code(s): I26.99 - Other pulmonary embolism without acute cor pulmonale Code(s): I26.99 - Other pulmonary embolism without acute cor pulmonale Status: Acute (5) Severe pulmonary hypertension: Code(s): I27.20 - Pulm
[2021-09-08 19:53] VITALS: O2SAT 94
[2021-09-08] MEDS: LORazepam INJ (*CRX) 2 MG/ML VIAL 1 MG IV PUSH (20:05)
[2021-09-08] MEDS: MORPHINE SULFATE INJ (*CRX) 50 MG in SODIUM CHLORIDE 0.9% IV 95 ML IV CONT (22:51)
[2021-09-09 08:00] VITALS: O2SAT 94
--- NOTE | 2021-09-09 11:22 | PM.IMPN ---
Progress Note: A&P Assessment and Plan (1) Palliative care by specialist: Code(s): Z51.5 - Encounter for palliative care Status: Acute Assessment and Plan: Meet inpatient hospice criteria due to requiring continuous opioid infusion for control of dyspnea and discomfort Remainder of palliative regimen as ordered 09/09: Discussed with daughter and significant other at bedside possible transition to po meds 09/10 and then discharge home 09/11 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: Qualifiers: Laterality: unspecified laterality Qualified Code(s): C78.00 - Secondary malignant neoplasm of unspecified lung Code(s): C78.00 - Secondary malignant neoplasm of unspecified lung Status: Acute (4) Pulmonary embolism: Qualifiers: Pulmonary embolism type: unspecified Chronicity: unspecified Acute cor pulmonale presence: unspecified Qualified Code(s): I26.99 - Other pulmonary embolism without acute cor pulmonale Code(s): I26.99 - Other pulmonary embolism without acute cor pulmonale Status: Acute (5) Severe pulmonary hypertension: Code(s): I27.20 - Pulmonary hypertension, unspecified Status: Acute (6) Acute respiratory failure: Qualifiers: Respiratory failure complication: hypoxia Qualified Code(s): J96.01 - Acute respiratory failure with hypoxia Code(s): J96.00 - Acute respiratory failure, unspecified whether with hypoxia or hypercapnia Status: Acute Subjective Date/time seen: 09/09/21 11:22 Interval history: 09/09 visit. Busy day 09/08. Tired today. Drinking Ensure, water, other beverages. Ate a few bites of egg this AM. Pain remains well controlled on morphine 2 mg/hr. Review of Systems Review of Systems: ROS unobtainable: Yes unobtainable due to medical condition Exam Narrative: Elderly female lying in hospital bed in no acute distress Neck without JVD Chest bilateral coarse breath sounds and crackles in lower lobes Heart regular rate Abdomen soft with hypoactive bowel sounds nontender Extremities without edema or cyanosis Musculoskeletal no gross deformity to visual inspection Neurologic cranial nerves symmetric to visual inspection Psychiatric alert oriented to person Objective Data Vital Signs Vital Signs: Vital Signs - 24 hr 09/08/21 19:53 09/09/21 08:00 Pulse Oximetry 94 94 Intake/Output Intake/Output: Intake & Output 09/06/21 09/07/21 09/08/21 09/09/21 23:59 23:59 23:59 23:59 Intake Total 250 120 Output Total 775 350 Balance -775 -100 120 Meds/Results Medications: Active Medications Generic Name Dose Route Start Last Admin Trade Name Freq PRN Reason Stop Dose Admin Artificial Tears 0 drop 09/07/21 18:51 Artificial Tears Ophth Soln 15 Ml Bottle EACH EYE Q12H PRN Dry Eye(s) Bisacodyl 10 mg 09/07/21 18:51 Bisacodyl 10 Mg Suppository RECTAL QAM PRN Constipation Glycopyrrolate 0.1 mg 09/07/21 18:50 Glycopyrrolate Inj (*Sp) 0.2 Mg/Ml Vial IV PUSH Q4H PRN SECRETIONS Morphine Sulfate 50 mg/ Sodium 100 mls @ 4 mls/hr 09/07/21 19:30 09/08/21 22:51 Chloride IV CONT 2 mg/hr .Q24H NICK 4 mls/hr Administration 2 MG/HR Lorazepam 1 mg 09/07/21 18:50 09/08/21 20:05 Lorazepam Inj (*Crx) 2 Mg/Ml Vial IV PUSH 1 mg Q4H PRN Administration RESTLESSNESS Morphine Sulfate 4 mg 09/07/21 18:49 09/08/21 20:05 Morphine Sulfate (*Crx) 4 Mg/Ml Inj IV PUSH 4 mg Q1H PRN Administration PAIN/SOB Prochlorperazine Edisylate 10 mg 09/07/21 18:51 Prochlorperazine Edisylate 10 Mg/2 Ml Vial IV PUSH Q6H PRN Nausea And Vomiting
[2021-09-09] MEDS: MORPHINE SULFATE (*CRX) 4 MG/ML INJ IV PUSH (12:15)
[2021-09-09] MEDS: GLYCOPYRROLATE INJ (*SP) 0.2 MG/ML VIAL 0.1 MG IV PUSH ×2 (12:15→20:41)
[2021-09-09] MEDS: LORazepam INJ (*CRX) 2 MG/ML VIAL 1 MG IV PUSH (12:16)
[2021-09-09 20:00] VITALS: O2SAT 94
[2021-09-09] MEDS: MORPHINE SULFATE INJ (*CRX) 50 MG in SODIUM CHLORIDE 0.9% IV 95 ML IV CONT (20:41)
[2021-09-10] MEDS: GLYCOPYRROLATE INJ (*SP) 0.2 MG/ML VIAL 0.1 MG IV PUSH ×2 (02:27→06:33)
[2021-09-10 03:46] VITALS: BP 137/84; PULSE 115; RESP 20; O2SAT 93
[2021-09-10 08:00] VITALS: O2SAT 93
--- NOTE | 2021-09-10 11:13 | PM.IMPN ---
Progress Note: A&P Assessment and Plan (1) Palliative care by specialist: Code(s): Z51.5 - Encounter for palliative care Status: Acute Assessment and Plan: Meet inpatient hospice criteria due to requiring continuous opioid infusion for control of dyspnea and discomfort Remainder of palliative regimen as ordered 09/09: Discussed with daughter and significant other at bedside possible transition to po meds 09/10 and then discharge home 09/11 09/10: Discussed with daughter and significant other at bedside that due to increased weakness will continue IV meds 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: Qualifiers: Laterality: unspecified laterality Qualified Code(s): C78.00 - Secondary malignant neoplasm of unspecified lung Code(s): C78.00 - Secondary malignant neoplasm of unspecified lung Status: Acute (4) Pulmonary embolism: Qualifiers: Pulmonary embolism type: unspecified Chronicity: unspecified Acute cor pulmonale presence: unspecified Qualified Code(s): I26.99 - Other pulmonary embolism without acute cor pulmonale Code(s): I26.99 - Other pulmonary embolism without acute cor pulmonale Status: Acute (5) Severe pulmonary hypertension: Code(s): I27.20 - Pulmonary hypertension, unspecified Status: Acute (6) Acute respiratory failure: Qualifiers: Respiratory failure complication: hypoxia Qualified Code(s): J96.01 - Acute respiratory failure with hypoxia Code(s): J96.00 - Acute respiratory failure, unspecified whether with hypoxia or hypercapnia Status: Acute Subjective Date/time seen: 09/10/21 11:13 Interval history: 09/10 visit. After dose of Robinul and Ativan 09/09, given for gurgling respirations, slept remainder of day through this AM. Only spoonfuls of water. No other nutrition. Unable to drink through straw now. One word responses. Too weak to scratch her own head. Review of Systems Review of Systems: ROS unobtainable: Yes unobtainable due to medical condition Exam Narrative: Elderly female lying in hospital bed in no acute distress Neck without JVD Chest bilateral coarse breath sounds and crackles in lower lobes Heart regular rate Abdomen soft with hypoactive bowel sounds nontender Extremities without edema or cyanosis Musculoskeletal no gross deformity to visual inspection Neurologic cranial nerves symmetric to visual inspection Psychiatric alert oriented to person Objective Data Vital Signs Vital Signs: Vital Signs - 24 hr 09/09/21 20:00 09/10/21 03:46 09/10/21 08:00 Pulse Rate 115 H Respiratory Rate 20 Blood Pressure 137/84 Pulse Oximetry 94 93 93 Intake/Output Intake/Output: Intake & Output 09/07/21 09/08/21 09/09/21 09/10/21 23:59 23:59 23:59 23:59 Intake Total 250 270 Output Total 775 350 Balance -775 -100 270 Meds/Results Medications: Active Medications Generic Name Dose Route Start Last Admin Trade Name Freq PRN Reason Stop Dose Admin Artificial Tears 0 drop 09/07/21 18:51 Artificial Tears Ophth Soln 15 Ml Bottle EACH EYE Q12H PRN Dry Eye(s) Bisacodyl 10 mg 09/07/21 18:51 Bisacodyl 10 Mg Suppository RECTAL QAM PRN Constipation Glycopyrrolate 0.1 mg 09/07/21 18:50 09/10/21 06:33 Glycopyrrolate Inj (*Sp) 0.2 Mg/Ml Vial IV PUSH 0.1 mg Q4H PRN Administration SECRETIONS Morphine Sulfate 50 mg/ Sodium 100 mls @ 4 mls/hr 09/07/21 19:30 09/09/21 20:41 Chloride IV CONT 2 mg/hr .Q24H NICK 4 mls/hr Administration 2 MG/HR Lorazepam 1 mg 09/07/21 18:50 09/09/21 12:16 Lorazepam Inj (*Crx) 2 Mg/Ml Vial IV PUSH 1 mg Q4H PRN Administration RESTLESSNESS Morphine Sulfate 4 mg 09/07/21 18:49 09/09/21 12:15 Morphine Sulfate (*Crx) 4 Mg/Ml Inj IV PUSH 4 mg Q1H PRN Administration PAIN/SOB
[2021-09-10] MEDS: MORPHINE SULFATE (*CRX) 4 MG/ML INJ IV PUSH ×2 (11:33→19:54)
[2021-09-10] MEDS: MORPHINE SULFATE INJ (*CRX) 50 MG in SODIUM CHLORIDE 0.9% IV 95 ML IV CONT (20:12)
[2021-09-10 21:03] VITALS: BP 148/75; PULSE 111; RESP 19; TEMP 36.3; O2SAT 94
[2021-09-11] MEDS: LORazepam INJ (*CRX) 2 MG/ML VIAL 1 MG IV PUSH ×2 (01:01→14:28)
[2021-09-11 08:00] VITALS: O2SAT 95
[2021-09-11 08:04] VITALS: BP 149/81; PULSE 107; RESP 20; TEMP 35.8; O2SAT 96
[2021-09-11] MEDS: MORPHINE SULFATE (*CRX) 4 MG/ML INJ IV PUSH (14:28)
--- NOTE | 2021-09-11 15:04 | PC.NURSE ---
Pt has complained of pain multiple times. Boluses of morphine have been requested multiple times per shift. These requests have increased over the last couple of days. As a result of this and conversations with the shift supervisor film processing nurse, I shared this information with the [facility] nurse and suggested that an increase in the morphine drip might want to be considered. The [facility] nurse concurred and instructed me to increase the morphine IV to 4mg/hour. When I arrived in the pt's room to make the changes, the pt's daughter instructed the [facility] nurse who in turn instructed me to only increase the morphine IV to 3mg/hour. As I was reprogramming the IV pump, pt's special male friend informed me that I am only supposed to be increasing it to 3! I replied that I heard the instructions from the nurse practioner and that is all that I increaed it to. Kanchan Roles, RN was in the room co-signing/witnessing the change.
--- NOTE | 2021-09-11 16:30 | WPDPN ---
Progress Note: A&P Assessment and Plan (1) Palliative care by specialist: Code(s): Z51.5 - Encounter for palliative care Status: Acute Assessment and Plan: Meet inpatient hospice criteria due to requiring continuous opioid infusion for control of dyspnea and discomfort Remainder of palliative regimen as ordered 09/09: Discussed with daughter and significant other at bedside possible transition to po meds 09/10 and then discharge home 09/11 09/10: Discussed with daughter and significant other at bedside that due to increased weakness will continue IV meds 09/11: Discussed with daughter and significant other at bedside that pt will continue to require IV medications. 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: Qualifiers: Laterality: unspecified laterality Qualified Code(s): C78.00 - Secondary malignant neoplasm of unspecified lung Code(s): C78.00 - Secondary malignant neoplasm of unspecified lung Status: Acute (4) Pulmonary embolism: Qualifiers: Pulmonary embolism type: unspecified Chronicity: unspecified Acute cor pulmonale presence: unspecified Qualified Code(s): I26.99 - Other pulmonary embolism without acute cor pulmonale Code(s): I26.99 - Other pulmonary embolism without acute cor pulmonale Status: Acute (5) Severe pulmonary hypertension: Code(s): I27.20 - Pulmonary hypertension, unspecified Status: Acute (6) Acute respiratory failure: Qualifiers: Respiratory failure complication: hypoxia Qualified Code(s): J96.01 - Acute respiratory failure with hypoxia Code(s): J96.00 - Acute respiratory failure, unspecified whether with hypoxia or hypercapnia Status: Acute Subjective Date/time seen: 09/11/21 13:35 Interval history: 09/11 visit. Patient much less responsive today. 2 doses of prn Morphine given between 7 am and 1400. Increased continuous morphine IV from 2mg/hr to 3 mg/hr. Sleeping most of the day and waking for only brief periods, still somewhat responsive to verbal stimuli. Only a few sips of water and Ensure. One word responses. Too weak to hold her own arm up. Patient still appropriate for inpatient hospice care. Review of Systems Review of Systems: ROS unobtainable: Yes unobtainable due to medical condition Exam Narrative: Elderly female lying in hospital bed in no acute distress Neck without JVD Chest bilateral coarse breath sounds and crackles in lower lobes Heart regular rate Abdomen soft with hypoactive bowel sounds nontender Extremities without edema or cyanosis Musculoskeletal no gross deformity to visual inspection Neurologic cranial nerves symmetric to visual inspection Psychiatric lethargic, oriented to person Objective Data Vital Signs Vital Signs: Vital Signs - 24 hr 09/10/21 21:03 09/11/21 08:00 09/11/21 08:04 Temperature 36.3 C L 35.8 C L Pulse Rate 111 H 107 H Respiratory Rate 19 20 Blood Pressure 148/75 H 149/81 H Pulse Oximetry 94 95 96 Intake/Output Intake/Output: Intake & Output 09/08/21 09/09/21 09/10/21 09/11/21 23:59 23:59 23:59 23:59 Intake Total 250 270 200 50 Output Total 350 125 Balance -100 270 75 50 Meds/Results Medications: Active Medications Generic Name Dose Route Start Last Admin Trade Name Freq PRN Reason Stop Dose Admin Artificial Tears 0 drop 09/07/21 18:51 Artificial Tears Ophth Soln 15 Ml Bottle EACH EYE Q12H PRN Dry Eye(s) Bisacodyl 10 mg 09/07/21 18:51 Bisacodyl 10 Mg Suppository RECTAL QAM PRN Constipation Glycopyrrolate 0.1 mg 09/07/21 18:50 09/10/21 06:33 Glycopyrrolate Inj (*Sp) 0.2 Mg/Ml Vial IV PUSH 0.1 mg Q4H PRN Administration SECRETIONS Morphine Sulfate 50 mg/ Sodium 100 mls @ 6 mls/hr 09/07/21 19:30 09/11/21 15:03 Chloride IV CONT 3 mg/hr .[id number] NICK 6 mls/hr In
[2021-09-11] MEDS: MORPHINE SULFATE INJ (*CRX) 50 MG in SODIUM CHLORIDE 0.9% IV 95 ML 6 MG IV CONT (17:52)
[2021-09-11 22:24] VITALS: BP 159/90; PULSE 121; RESP 20; TEMP 37.1; O2SAT 96
--- NOTE | 2021-09-11 23:06 | PC.NURSE ---
09/08/21 2251 infused morphine drip 64.7ml. wasted 35.3ml. sam mariscal. unable to document on mar flow sheet.
[2021-09-12 08:55] VITALS: O2SAT 96
[2021-09-12] MEDS: MORPHINE SULFATE (*CRX) 4 MG/ML INJ IV PUSH ×2 (09:12→22:38)
[2021-09-12] MEDS: MORPHINE SULFATE INJ (*CRX) 50 MG in SODIUM CHLORIDE 0.9% IV 95 ML 6 MG IV CONT (09:18)
[2021-09-12] MEDS: LORazepam INJ (*CRX) 2 MG/ML VIAL 1 MG IV PUSH ×2 (12:31→21:24)
[2021-09-12 14:07] VITALS: BP 142/87; PULSE 117; RESP 12; TEMP 36.3; O2SAT 97
--- NOTE | 2021-09-12 16:37 | WPDPN ---
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: Qualifiers: Laterality: unspecified laterality Qualified Code(s): C78.00 - Secondary malignant neoplasm of unspecified lung Code(s): C78.00 - Secondary malignant neoplasm of unspecified lung Status: Acute (4) Pulmonary embolism: Qualifiers: Acute cor pulmonale presence: unspecified Chronicity: unspecified Pulmonary embolism type: unspecified Qualified Code(s): I26.99 - Other pulmonary embolism without acute cor pulmonale Code(s): I26.99 - Other pulmonary embolism without acute cor pulmonale Status: Acute (5) Severe pulmonary hypertension: Code(s): I27.20 - Pulmonary hypertension, unspecified Status: Acute (6) Acute respiratory failure: Qualifiers: Respiratory failure complication: hypoxia Qualified Code(s): J96.01 - Acute respiratory failure with hypoxia Code(s): J96.00 - Acute respiratory failure, unspecified whether with hypoxia or hypercapnia Status: Acute Plan Pt remains appropriate for inpatient hospice care. She is mostly non-responsive. VSS. Family remains at bedside and are appropriate. Time Spent With Patient Time: 45 minutes Subjective Date/time seen: 09/12/21 1500 09/12: Patient less responsive today compared to 09/11. Remains on 3 mg/hr IV morphine infusion. Daughter and family at bedside and coping appropriately. No intake today. VSS. Review of Systems Constitutional: Comments: ROS unavailable due to patient condition. Exam Narrative: Elderly female lying in hospital bed in no acute distress. Neck without JVD Chest bilateral diminished breath sounds Heart rate increased but regular in rhythm Abdomen soft with hypoactive bowel sounds Extremities without cyanosis or edema Musculoskeletal- no gross deformity to visual perception Neurological- Non responsive, unable to follow commands Psyschiatric- Lethargic, alert to self at best Objective Data Vital Signs Vital Signs: Vital Signs - 24 hr 09/11/21 22:24 09/12/21 08:55 09/12/21 14:07 Temperature 37.1 C 36.3 C L Pulse Rate 121 H 117 H Respiratory Rate 20 12 Blood Pressure 159/90 H 142/87 H Pulse Oximetry 96 96 97 Oxygen Delivery Nasal Cannula Oxygen Flow Rate 5 Intake/Output Intake/Output: Intake & Output 09/09/21 09/10/21 09/11/21 09/12/21 23:59 23:59 23:59 23:59 Intake Total 270 200 150 100 Output Total 125 Balance 270 75 150 100 Meds/Results Medications: Active Medications Generic Name Dose Route Start Last Admin Trade Name Freq PRN Reason Stop Dose Admin Artificial Tears 0 drop 09/07/21 18:51 Artificial Tears Ophth Soln 15 Ml Bottle EACH EYE Q12H PRN Dry Eye(s) Bisacodyl 10 mg 09/07/21 18:51 Bisacodyl 10 Mg Suppository RECTAL QAM PRN Constipation Glycopyrrolate 0.1 mg 09/07/21 18:50 09/10/21 06:33 Glycopyrrolate Inj (*Sp) 0.2 Mg/Ml Vial IV PUSH 0.1 mg Q4H PRN Administration SECRETIONS Morphine Sulfate 50 mg/ Sodium 100 mls @ 6 mls/hr 09/07/21 19:30 09/12/21 09:18 Chloride IV CONT 3 mg/hr .[id number] NICK 6 mls/hr Administration Lorazepam 1 mg 09/07/21 18:50 09/12/21 12:31 Lorazepam Inj (*Crx) 2 Mg/Ml Vial IV PUSH 1 mg Q4H PRN Administration RESTLESSNESS Morphine Sulfate 4 mg 09/07/21 18:49 09/12/21 09:12 Morphine Sulfate (*Crx) 4 Mg/Ml Inj IV PUSH 4 mg Q1H PRN Administration PAIN/SOB Prochlorperazine Edisylate 10 mg 09/07/21 18:51 Prochlorperazine Edisylate 10 Mg/2 Ml Vial IV PUSH Q6H PRN Nausea And Vomiting
[2021-09-12 20:00] VITALS: BP 147/86; PULSE 122; RESP 12; TEMP 37.1; O2SAT 96
[2021-09-13] MEDS: MORPHINE SULFATE INJ (*CRX) 50 MG in SODIUM CHLORIDE 0.9% IV 95 ML 6 MG IV CONT ×2 (01:06→16:43)
[2021-09-13 09:00] VITALS: O2SAT 96
--- NOTE | 2021-09-13 15:09 | WPDPN ---
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: Qualifiers: Laterality: unspecified laterality Qualified Code(s): C78.00 - Secondary malignant neoplasm of unspecified lung Code(s): C78.00 - Secondary malignant neoplasm of unspecified lung Status: Acute (4) Pulmonary embolism: Qualifiers: Pulmonary embolism type: unspecified Chronicity: unspecified Acute cor pulmonale presence: unspecified Qualified Code(s): I26.99 - Other pulmonary embolism without acute cor pulmonale Code(s): I26.99 - Other pulmonary embolism without acute cor pulmonale Status: Acute (5) Severe pulmonary hypertension: Code(s): I27.20 - Pulmonary hypertension, unspecified Status: Acute (6) Acute respiratory failure: Qualifiers: Respiratory failure complication: hypoxia Qualified Code(s): J96.01 - Acute respiratory failure with hypoxia Code(s): J96.00 - Acute respiratory failure, unspecified whether with hypoxia or hypercapnia Status: Acute Plan Pt remains appropriate for inpatient hospice care. She is non-responsive. VSS. Family remains at bedside and are appropriate. Subjective Date/time seen: 09/13/21 15:09 Exam Narrative: Elderly female lying in hospital bed in no acute distress Neck without JVD Chest bilateral breath sounds are diminished Heart rate elevated but regular Abdomen soft with absent bowel sounds Mild edema to bilateral hands, no edema noted to BLE Musculoskeletal no gross deformity to visual inspection Neurological: Cranial nerves symmetric to visual inspection Psychiatric: Non-responsive Objective Data Vital Signs Vital Signs: Vital Signs - 24 hr 09/12/21 20:00 09/12/21 20:00 09/13/21 09:00 Temperature 37.1 C Pulse Rate 122 H Respiratory Rate 12 Blood Pressure 147/86 H Pulse Oximetry 96 96 96 Oxygen Delivery High Flow Therapy with Na High Flow Nasal Cannula Oxygen Flow Rate 5 5 Intake/Output Intake/Output: Intake & Output 09/10/21 09/11/21 09/12/21 09/13/21 23:59 23:59 23:59 23:59 Intake Total 200 150 100 100 Output Total 125 500 50 Balance 75 150 -400 50 Meds/Results Medications: Active Medications Generic Name Dose Route Start Last Admin Trade Name Freq PRN Reason Stop Dose Admin Artificial Tears 0 drop 09/07/21 18:51 Artificial Tears Ophth Soln 15 Ml Bottle EACH EYE Q12H PRN Dry Eye(s) Bisacodyl 10 mg 09/07/21 18:51 Bisacodyl 10 Mg Suppository RECTAL QAM PRN Constipation Glycopyrrolate 0.1 mg 09/07/21 18:50 09/10/21 06:33 Glycopyrrolate Inj (*Sp) 0.2 Mg/Ml Vial IV PUSH 0.1 mg Q4H PRN Administration SECRETIONS Morphine Sulfate 50 mg/ Sodium 100 mls @ 6 mls/hr 09/07/21 19:30 09/13/21 01:06 Chloride IV CONT 3 mg/hr .[id number] NICK 6 mls/hr Administration Lorazepam 1 mg 09/07/21 18:50 09/12/21 21:24 Lorazepam Inj (*Crx) 2 Mg/Ml Vial IV PUSH 1 mg Q4H PRN Administration RESTLESSNESS Morphine Sulfate 4 mg 09/07/21 18:49 09/12/21 22:38 Morphine Sulfate (*Crx) 4 Mg/Ml Inj IV PUSH 4 mg Q1H PRN Administration PAIN/SOB Prochlorperazine Edisylate 10 mg 09/07/21 18:51 Prochlorperazine Edisylate 10 Mg/2 Ml Vial IV PUSH Q6H PRN Nausea And Vomiting
[2021-09-13 20:00] VITALS: BP 148/79; PULSE 123; RESP 12; TEMP 36.4; O2SAT 98
[2021-09-13] MEDS: MORPHINE SULFATE (*CRX) 4 MG/ML INJ IV PUSH ×2 (21:06→23:19)
[2021-09-13] MEDS: LORazepam INJ (*CRX) 2 MG/ML VIAL 1 MG IV PUSH (21:07)
[2021-09-14] MEDS: LORazepam INJ (*CRX) 2 MG/ML VIAL 1 MG IV PUSH ×2 (00:46→04:54)
[2021-09-14] MEDS: MORPHINE SULFATE (*CRX) 4 MG/ML INJ IV PUSH (04:54)
--- NOTE | 2021-09-20 14:50 | PM.DDS ---
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 Medications titrated to comfort. She peacefully. Additional Data Confirmation of as documented by pronouncing clinician: Pupillary Reflex, Palpable Pulses, Response to Stimuli, Heart Tones and Breath Sounds Name of Provider Notified: Ryan Werner Time Provider Notified: 06:35 Provider Requests Autopsy: No Mat Machine Operator Notified: Yes Date [facility] Notified of : 09/14/21 Time [facility] Notified of : 06:12
== END 2021-09-14 06:05 | disposition expired | DRG 951 ==
LOC: ANHIMU 17:51 → ANH3MEDSUR 09-11 14:05 → ANHIMU 09-15 15:40
PROVIDERS: Admitting Provider Internal Medicine; PCP Internal Medicine; Visit Provider Internal Medicine
DX: Z51.5 Encounter for palliative care (principal); I26.99 Other pulmonary embolism without acute cor pulmonale; J96.01 Acute respiratory failure with hypoxia; C78.00 Secondary malignant neoplasm of unspecified lung; C08.9 Malignant neoplasm of major salivary gland, unspecified; I27.20 Pulmonary hypertension, unspecified; Z66 Do not resuscitate; Z85.828 Personal history of other malignant neoplasm of skin
CPT/HCPCS: 94640; A9270; J2060; J2270